=== PATIENT | male | born 1955 | race Caucasian/White ===

== ENCOUNTER 2024-01-17 08:48 | Day surgery (SDC) | payer MEDICARE ==
[2024-01-15 12:23] VITALS: BMI 22.9
[2024-01-17] MEDS: SODIUM CHLORIDE 0.9% 500 ML 500 ML IV ONE (09:07)
[2024-01-17 09:12] VITALS: TEMP 96.8
[2024-01-17] MEDS ORDERED: fentaNYL (PF) 50 MCG/ML 2 ML AMP ONE (10:26)
[2024-01-17] MEDS: BENZOCAINE SPRAY 1 CAN TOPICAL ONE (10:30)
[2024-01-17] MEDS: MIDAZOLAM 2 MG/2 ML VIAL IVP ONE (10:48)
[2024-01-17] MEDS: fentaNYL (PF) 50 MCG/ML 2 ML AMP IVP ONE (10:48)
[2024-01-17 11:46] VITALS: PULSE 63; RESP 16
[2024-01-17 12:18] VITALS: BP 111/68
--- NOTE | 2024-01-18 01:43 | ECHOT ---
TRANSESOPHAGEAL ECHOCARDIOGRAM INDICATIONS: Mitral regurgitation. PROCEDURE NOTE: After obtaining informed consent, transesophageal echocardiogram is performed in left lateral position using an Omniplane probe. Local and IV sedation were obtained using Xylocaine spray, 2 mg of Versed, and 25 mcg of fentanyl. He tolerated the procedure well without any obvious immediate complications. The patient received moderate conscious sedation. Total sedation time was 10 minutes. FINDINGS: Mitral valve appears anatomically normal. There is moderate central mitral regurgitation noted. Aortic valve is a 3-leaflet valve. There is [id number]-kusgygkw aortic regurgitation noted. Aortic root measures within normal limits. Left ventricle has normal size, shows mild LV systolic dysfunction with an ejection fraction of around 50%. There is mild tricuspid regurgitation noted. Left atrium appears mildly enlarged. Right atrium and right ventricle seen within normal limits. There is no evidence of [id number]-ra-[id number] shunt by color-flow Doppler or uoryo-ik-vlds shunt by agitated saline contrast study. CONCLUSIONS: Moderate central mitral regurgitation, vvoc-bg-erzsmldk aortic regurgitation, mild LV systolic dysfunction. MMODL / IJN: [id number] /
== END 2024-01-17 12:43 | disposition home or self-care (01) ==
LOC: CATHCVL 08:48
PROVIDERS: ATTEND Internal Medicine Cardiovascular Disease
DX: I08.3 Combined rheumatic disorders of mitral, aortic and tricuspid valves (principal); I10 Essential (primary) hypertension; E78.5 Hyperlipidemia, unspecified; I42.0 Dilated cardiomyopathy; Z79.899 Other long term (current) drug therapy
CPT/HCPCS: 93312; 93320; 93325; 99152; J2250; J3010